=== PATIENT | female | born 1950 | race Asian ===

== ENCOUNTER 2020-12-13 05:36 | Day surgery (SDC) | payer MEDICARE ==
[2020-12-11 12:49] LABS: COVID AG,FIA SOURCE NASOPHARYNGEAL
[~2020-12-13] VITALS: Ht 152.4 cm; Wt 54.5 kg
[~2020-12-13 05:36] MED LIST: GUAI600T30 PO; KETOROLAC TROMETHAMINE 0.5% 5 ML OPHTHALMIC SOLUTION ONE; MOXIFLOXACIN HCL 0.5% 3 ML OPHTHALMIC SOLUTION ONE; PHENYLEPHRINE HCL 2.5% 2 ML OPHTHALMIC SOLUTION ONE; RINGERS SOLUTION,LACTATED 500 ML IV ONE; THYR30 PO; TROPICAMIDE 1% 2 ML OPHTHALMIC SOLUTION ONE; [UNRECOGNIZED DRUG - CODE] PO
[2020-12-13] MEDS ORDERED: BALANCED SALT 15 ML OPHTHALMIC IRRIG.SOLN OU ONE (05:37)
[2020-12-13] MEDS ORDERED: EPINEPHrine 1:1,000 [1 MG/ML] AMP IM ONE (05:37)
[2020-12-13] MEDS ORDERED: HYALURONATE SOD/CHONDROITIN SOD 0.5 ML VIAL IO ONE (05:37)
[2020-12-13] MEDS ORDERED: TETRACAINE HCL/PF 0.5% 4 ML OPHTHALMIC SOLUTION OU ONE (05:37)
[2020-12-13] MEDS ORDERED: LIDOCAINE/PF 1% 2 ML VIAL IM ONE (05:37)
[2020-12-13] MEDS ORDERED: POVIDONE-IODINE 10% 15 ML SOLUTION UD TP ONE (05:37)
[2020-12-13] MEDS ORDERED: HYALURONATE SODIUM 12 MG/ML 0.8 ML SYRINGE IO ONE (05:37)
[2020-12-13] MEDS: TROPICAMIDE 1% 2 ML OPHTHALMIC SOLUTION OD SCH ×3 (07:01→07:11)
[2020-12-13] MEDS: KETOROLAC TROMETHAMINE 0.5% 5 ML OPHTHALMIC SOLUTION OD SCH ×3 (07:01→07:11)
[2020-12-13] MEDS: PHENYLEPHRINE HCL 2.5% 2 ML OPHTHALMIC SOLUTION OD SCH ×3 (07:01→07:11)
[2020-12-13] MEDS: MOXIFLOXACIN HCL 0.5% 3 ML OPHTHALMIC SOLUTION OD SCH ×3 (07:01→07:11)
== END 2020-12-13 08:45 | disposition home or self-care (01) ==
LOC: SURGERY 05:36
PROVIDERS: ATTEND Ophthalmology
DX: H25.11 Age-related nuclear cataract, right eye (principal); E03.9 Hypothyroidism, unspecified; Z88.2 Allergy status to sulfonamides; Z79.899 Other long term (current) drug therapy; Z83.3 Family history of diabetes mellitus; Z82.49 Family history of ischemic heart disease and other diseases of the circulatory system; Z90.710 Acquired absence of both cervix and uterus; Z98.890 Other specified postprocedural states
CPT/HCPCS: 66984; 87426; 93005; C9803; J0171; J3490 ×2; J7120; V2632

== ENCOUNTER 2021-01-31 06:01 | Day surgery (SDC) | payer MEDICARE, OTHER ==
[2021-01-29 13:57] LABS: COVID AG,FIA SOURCE NASOPHARYNGEAL
[~2021-01-31] VITALS: Ht 152.4 cm; Wt 56.4 kg
[~2021-01-31 06:01] MED LIST changes: +AMLO2.5T96 PO; +FENO145T26 PO; -GUAI600T30 PO; -[UNRECOGNIZED DRUG - CODE] PO
[2021-01-31] MEDS ORDERED: FentaNYL CITRATE PF 100 MCG/2 ML VIAL IVP ONE (06:02)
[2021-01-31] MEDS ORDERED: CHONDR SULF A SOD/HYALURONATE 1.05 ML KIT IO ONE (06:02)
[2021-01-31] MEDS ORDERED: TETRACAINE HCL/PF 0.5% 4 ML OPHTHALMIC SOLUTION OU ONE (06:02)
[2021-01-31] MEDS ORDERED: EPINEPHrine 1:1,000 [1 MG/ML] AMP IM ONE (06:02)
[2021-01-31] MEDS ORDERED: LIDOCAINE/PF 1% 2 ML VIAL IM ONE (06:02)
[2021-01-31] MEDS ORDERED: MIDAZOLAM HCL 2 MG/2 ML VIAL IVP ONE (06:02)
[2021-01-31] MEDS ORDERED: POVIDONE-IODINE 10% 15 ML SOLUTION UD TP ONE (06:02)
[2021-01-31] MEDS ORDERED: RINGERS SOLUTION,LACTATED 500 ML IV ONE (06:45)
[2021-01-31] MEDS: TROPICAMIDE 1% 2 ML OPHTHALMIC SOLUTION OS SCH ×3 (06:47→07:00)
[2021-01-31] MEDS: KETOROLAC TROMETHAMINE 0.5% 5 ML OPHTHALMIC SOLUTION OS SCH ×3 (06:47→07:00)
[2021-01-31] MEDS: PHENYLEPHRINE HCL 2.5% 2 ML OPHTHALMIC SOLUTION OS SCH ×3 (06:47→07:00)
[2021-01-31] MEDS: MOXIFLOXACIN HCL 0.5% 3 ML OPHTHALMIC SOLUTION OS SCH ×3 (06:47→07:00)
== END 2021-01-31 09:10 | disposition home or self-care (01) ==
LOC: SURGERY 06:01
PROVIDERS: ATTEND Ophthalmology
DX: H25.12 Age-related nuclear cataract, left eye (principal); I10 Essential (primary) hypertension; H10.9 Unspecified conjunctivitis; Z79.899 Other long term (current) drug therapy; E78.00 Pure hypercholesterolemia, unspecified; Z90.710 Acquired absence of both cervix and uterus; Z98.51 Tubal ligation status; Z98.890 Other specified postprocedural states; Z98.41 Cataract extraction status, right eye; Z88.2 Allergy status to sulfonamides; M19.90 Unspecified osteoarthritis, unspecified site
CPT/HCPCS: 66984; 87426; A9575; C9803; J0171; J2250; J3010; J3490; J7120; V2632